=== PATIENT | female | born 2000 | race Two or more races ===

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

== ENCOUNTER → 2021-12-22 | Outpatient (REF) | payer OTHER ==
[2021-12-22 12:12] LABS: HEMATOCRIT 40.6 % (36.0-47.0); MEAN CORPUSCULAR HEMOGLOBIN 30.6 pg (27.0-33.0); MEAN CORPUSCULAR HGB CONC 34.5 g/dl (32.0-36.5); MEAN CORPUSCULAR VOLUME 88.8 fl (80.0-96.0); PLATELET COUNT, AUTOMATED 275 10^3/uL (150-450); RED BLOOD COUNT 4.57 10^6/uL (4.00-5.40); WHITE BLOOD COUNT 7.8 10^3/uL (4.0-10.0)
[2021-12-22 13:02] LABS: HCG, SERUM QUANTITATIVE 32616 MIU/ML
[2021-12-22 13:18] LABS: HEPATITIS C VIRUS ABY INDEX 0.1 INDEX (<0.8)
[2021-12-22 13:19] LABS: HIV 1&2 SCREEN CENTAUR NEGATIVE (NEGATIVE)
== END ==
LOC: M LAB REF 11:35
PROVIDERS: ATTEND Obstetrics & Gynecology
DX: Z32.01 Encounter for pregnancy test, result positive (principal); O36.80X0 Pregnancy with inconclusive fetal viability, not applicable or unspecified

== ENCOUNTER → 2022-01-19 | Outpatient (REF) | payer OTHER | LOC: M LAB REF 16:39 | PROVIDERS: ATTEND Obstetrics & Gynecology | DX: Z34.01 Encounter for supervision of normal first pregnancy, first trimester (principal) ==

== ENCOUNTER → 2022-03-31 | Outpatient (CLI) | payer OTHER | LOC: M LAB 10:02 | PROVIDERS: ATTEND Advanced Practice Midwife | DX: O99.212 Obesity complicating pregnancy, second trimester (principal); Z3A.00 Weeks of gestation of pregnancy not specified ==

== ENCOUNTER → 2022-05-11 | Outpatient (REF) | payer OTHER | LOC: M LAB REF 11:39 | PROVIDERS: ATTEND Obstetrics & Gynecology | DX: R30.0 Dysuria (principal) ==

== ENCOUNTER → 2022-05-13 | Outpatient (REF) | payer OTHER | LOC: M LAB REF 12:28 | PROVIDERS: ATTEND Obstetrics & Gynecology | DX: R30.0 Dysuria (principal) ==

== ENCOUNTER → 2022-05-24 | Outpatient (CLI) | payer OTHER ==
[2022-05-24 12:31] LABS: HEMATOCRIT 33.8 % (36.0-47.0); HEMOGLOBIN 11.1 g/dl (12.0-15.5); MEAN CORPUSCULAR HEMOGLOBIN 29.8 pg (27.0-33.0); MEAN CORPUSCULAR HGB CONC 32.8 g/dl (32.0-36.5); MEAN CORPUSCULAR VOLUME 90.6 fl (80.0-96.0); PLATELET COUNT, AUTOMATED 250 10^3/uL (150-450); RED BLOOD COUNT 3.73 10^6/uL (4.00-5.40); WHITE BLOOD COUNT 10.1 10^3/uL (4.0-10.0)
== END ==
LOC: M WUC 10:06
PROVIDERS: ATTEND Obstetrics & Gynecology
DX: Z34.02 Encounter for supervision of normal first pregnancy, second trimester (principal)
CPT/HCPCS: 36415; 82950; 85027; 86850; 86901; J2790

== ENCOUNTER 2022-06-22 17:26 | Emergency (ER) | payer OTHER ==
[~2022-06-22] VITALS: Ht 167.6 cm; Wt 152.9 kg
[2022-06-22 17:26] VITALS: BP 134/93
[2022-06-22] MEDS ORDERED: TUMS750C5 PO (17:59)
[2022-06-22] MEDS ORDERED: PRENTAB9 PO (17:59)
[2022-06-22] MEDS ORDERED: ACET325C5 PO (17:59)
[2022-06-22] MEDS ORDERED: ONDA4TAB6 PO (21:57)
== END 2022-06-22 19:00 | disposition left against medical advice (07) ==
LOC: M ED 17:26
DX: Z53.21 Procedure and treatment not carried out due to patient leaving prior to being seen by health care provider (principal)

== ENCOUNTER 2022-06-22 17:37 | Outpatient (CLI) | payer OTHER ==
[~2022-06-22] VITALS: Ht 167.6 cm; Wt 150.9 kg
[2022-06-22] MEDS ORDERED: PRENTAB9 PO (17:59)
[2022-06-22] MEDS ORDERED: ACET325C5 PO (17:59)
[2022-06-22] MEDS ORDERED: TUMS750C5 PO (17:59)
[2022-06-22] MEDS ORDERED: HOME MED LIST COMPLETE! XX SCH (18:00)
[2022-06-22 18:02] VITALS: BP 141/92
[2022-06-22] MEDS ORDERED: LACTATED RINGER'S 1000 ML IV STA (18:41)
[2022-06-22] MEDS ORDERED: LR 1,000 ML IV SCH (18:45)
[2022-06-22 18:48] LABS: HEMATOCRIT 31.5 % (36.0-47.0); HEMOGLOBIN 10.7 g/dl (12.0-15.5); MEAN CORPUSCULAR HEMOGLOBIN 29.9 pg (27.0-33.0); PLATELET COUNT, AUTOMATED 212 10^3/uL (150-450); RED BLOOD COUNT 3.58 10^6/uL (4.00-5.40); WHITE BLOOD COUNT 8.4 10^3/uL (4.0-10.0)
[2022-06-22 19:18] LABS: URIC ACID 4.8 MG/DL (3.1-7.8)
[2022-06-22 19:21] LABS: LDH LACTATE DEHYDROGENASE 146 U/L (120-246)
[2022-06-22 19:22] LABS: ALBUMIN 2.5 G/DL (3.2-5.2); ALKALINE PHOSPHATASE 87 U/L (46-116); ALT/SGPT 12 U/L (7.0-40); AST/SGOT 10 U/L (<34); BILIRUBIN,TOTAL 0.5 MG/DL (0.3-1.2); BLOOD UREA NITROGEN 7 MG/DL (9-23); CALCIUM LEVEL 8.4 MG/DL (8.5-10.1); CARBON DIOXIDE LEVEL 20 MMOL/L (20-31); CHLORIDE LEVEL 107 MMOL/L (98-107); CREATININE FOR GFR 0.56 MG/DL (0.55-1.30); GLUCOSE, FASTING 92 MG/DL (60-100); POTASSIUM SERUM 3.6 MMOL/L (3.5-5.1); SODIUM LEVEL 138 MMOL/L (136-145); TOTAL PROTEIN 5.8 G/DL (5.7-8.2)
[2022-06-22 20:31] LABS: TOTAL PROTEIN,RANDOM URINE 35.7 MG/DL (0.0-14.0)
[2022-06-22] MEDS ORDERED: ONDA4TAB6 PO (21:57)
[2022-06-22] MEDS ORDERED: ONDANSETRON 4MG TAB PO ONE (22:00)
== END 2022-06-22 22:09 | disposition home or self-care (01) ==
LOC: M LDO 17:37
PROVIDERS: ATTEND Obstetrics & Gynecology
DX: O26.893 Other specified pregnancy related conditions, third trimester (principal); R10.31 Right lower quadrant pain; O99.213 Obesity complicating pregnancy, third trimester; Z3A.32 32 weeks gestation of pregnancy
CPT/HCPCS: 59025; 80053; 82570; 83615; 84156; 84550; 85027; 87486; 87581; 87633; 87798; G0378; G0463

== ENCOUNTER → 2022-07-14 | Outpatient (REF) | payer OTHER ==
[~2022-07-14] MED LIST: ACET325C5 PO; ONDA4TAB6 PO; PRENTAB9 PO; TUMS750C5 PO
== END ==
LOC: M LAB REF 16:00
PROVIDERS: ATTEND Obstetrics & Gynecology
DX: Z34.03 Encounter for supervision of normal first pregnancy, third trimester (principal)

== ENCOUNTER 2022-07-19 12:31 | Outpatient (CLI) | payer OTHER ==
[~2022-07-19] VITALS: Ht 167.6 cm; Wt 153.5 kg
[2022-07-19 13:01] VITALS: BP 126/75
[2022-07-19] MEDS ORDERED: HOME MED LIST COMPLETE! XX SCH (13:10)
[2022-07-19] MEDS ORDERED: ACETAMINOPHEN 500 MG TAB PO ONE (13:25)
[2022-07-19 14:08] VITALS: BP 121/73
== END 2022-07-19 14:34 | disposition home or self-care (01) ==
LOC: M LDO 12:31
PROVIDERS: ATTEND Advanced Practice Midwife
DX: O26.893 Other specified pregnancy related conditions, third trimester (principal); R51.9 Headache, unspecified; R60.9 Edema, unspecified; Z3A.36 36 weeks gestation of pregnancy
CPT/HCPCS: 59025; G0378; G0463

== ENCOUNTER 2022-08-03 14:41 | Inpatient (IN) | payer OTHER ==
[2022-08-03] VITALS (9 sets, daily range): BP systolic 118–155; BP diastolic 63–90
[~2022-08-03] VITALS: Ht 167.6 cm; Wt 154.7 kg
[2022-08-03] MEDS ORDERED: HOME MED LIST COMPLETE! XX SCH (15:20)
[2022-08-03 16:41] LABS: HEMATOCRIT 33.6 % (36.0-47.0); HEMOGLOBIN 11.1 g/dl (12.0-15.5); MEAN CORPUSCULAR VOLUME 87.7 fl (80.0-96.0); PLATELET COUNT, AUTOMATED 251 10^3/uL (150-450); RED BLOOD COUNT 3.83 10^6/uL (4.00-5.40); WHITE BLOOD COUNT 10.6 10^3/uL (4.0-10.0)
[2022-08-03 16:51] LABS: LDH LACTATE DEHYDROGENASE 164 U/L (120-246)
[2022-08-03 17:00] LABS: TOTAL PROTEIN,RANDOM URINE 30.6 MG/DL (0.0-14.0)
[2022-08-03 17:14] LABS: ALT/SGPT 12 U/L (7.0-40); AST/SGOT 11 U/L (<34); BILIRUBIN,TOTAL 0.3 MG/DL (0.3-1.2); CREATININE FOR GFR 0.53 MG/DL (0.55-1.30)
[2022-08-03 17:44] LABS: CREATININE,RANDOM URINE 105.6 MG/DL
[2022-08-03] MEDS ORDERED: TRANEXAMIC ACID INJection 1,000 MG in NS 100 ML IV PRN (18:10)
[2022-08-03] MEDS ORDERED: OXYTOCIN DRIP 30 UNITS in IV 1 EA IV PRN (18:10)
[2022-08-03] MEDS ORDERED: CARBOPROST TROMETHAMINE 250 MCG/ML AMP IM PRN (18:10)
[2022-08-03] MEDS ORDERED: LR 1,000 ML IV SCH (18:10)
[2022-08-03] MEDS ORDERED: OXYTOCIN DRIP 30 UNITS in IV 1 EA IV SCH (18:10)
[2022-08-03] MEDS ORDERED: miSOPROStol 50MCG 1/2 TABLET PV SCH (20:20)
[2022-08-04] VITALS (16 sets, daily range): BP systolic 124–189; BP diastolic 58–120
[2022-08-04] MEDS ORDERED: miSOPROStol 50MCG 1/2 TABLET PO SCH (00:15)
[2022-08-04] MEDS ORDERED: OXYTOCIN DRIP 30 UNITS in IV 1 EA IV SCH ×5 (05:20→11:15)
[2022-08-04] MEDS ORDERED: PROMETHAZINE 25MG/ML 1ML VIAL IV ONE (05:50)
[2022-08-04] MEDS ORDERED: BUTORPHANOL 2 MG/ML 1ML VIAL IV ONE (05:50)
[2022-08-04] MEDS: PRENATAL VITAMINS CHEWABLE TABLET PO SCH (09:00)
[2022-08-04 09:41] LABS: HEMATOCRIT 34.1 % (36.0-47.0); HEMOGLOBIN 11.2 g/dl (12.0-15.5); MEAN CORPUSCULAR HEMOGLOBIN 29.2 pg (27.0-33.0); MEAN CORPUSCULAR HGB CONC 32.8 g/dl (32.0-36.5); MEAN CORPUSCULAR VOLUME 88.8 fl (80.0-96.0); PLATELET COUNT, AUTOMATED 232 10^3/uL (150-450); RED BLOOD COUNT 3.84 10^6/uL (4.00-5.40); WHITE BLOOD COUNT 13.4 10^3/uL (4.0-10.0)
[2022-08-04] MEDS ORDERED: EPIDURAL/PCA KEYS XX PRN (10:05)
[2022-08-04] MEDS ORDERED: FENTANYL/ROPIVACAINE/NACL BAG 100 ML EPIDURAL SCH (10:05)
[2022-08-04] MEDS ORDERED: LR 500 ML IV PRN (10:05)
[2022-08-04] MEDS ORDERED: NALOXONE INJ 0.4MG/1ML VIAL IV PRN (10:05)
[2022-08-04] MEDS ORDERED: diphenhydrAMINE 50MG/ML VIAL IV PRN (10:05)
[2022-08-04] MEDS ORDERED: ONDANSETRON 4MG 2ML VIAL IV PRN (10:05)
[2022-08-04] MEDS ORDERED: ePHEDrine SULFATE 25 MG/5 ML(5MG/ML) SYRINGE IVP PRN (10:05)
[2022-08-04] MEDS ORDERED: LIDOCAINE 1% MDV 20ML VIAL As Ordered ONE (10:38)
[2022-08-04] MEDS ORDERED: LIDOCAINE 1% MDV 20ML VIAL IM ONE (10:40)
[2022-08-04] MEDS ORDERED: ACETAMINOPHEN TAB 650MG DOSE (2X325MG) PO PRN (11:15)
[2022-08-04] MEDS ORDERED: DIBUCAINE 1% OINTMENT 30GM TOP PRN (11:15)
[2022-08-04] MEDS ORDERED: IBUPROFEN 600MG TAB PO PRN (11:15)
[2022-08-04] MEDS ORDERED: RHOGAM 300MCG (1500IU) INJ IM SCH (11:15)
[2022-08-04] MEDS ORDERED: DOCUSATE SODIUM 100MG CAPSULE PO PRN (11:15)
[2022-08-04] MEDS: IBUPROFEN 800 MG TAB PO PRN ×2 (11:56→18:46)
[2022-08-04] MEDS: ACETAMINOPHEN 500 MG TAB PO PRN (23:49)
[2022-08-05] MEDS: ACETAMINOPHEN 500 MG TAB PO PRN ×2 (05:21→16:31)
[2022-08-05 05:46] VITALS: BP 141/74
[2022-08-05] MEDS: PRENATAL VITAMINS CHEWABLE TABLET PO SCH (09:16)
[2022-08-05] MEDS: IBUPROFEN 800 MG TAB PO PRN ×2 (09:16→21:06)
[2022-08-05 10:00] VITALS: BP 131/65
[2022-08-05 14:00] VITALS: BP 121/64
[2022-08-05 18:00] VITALS: BP 136/73
[2022-08-05 22:00] VITALS: BP 138/87
[2022-08-06] MEDS: ACETAMINOPHEN 500 MG TAB PO PRN ×2 (00:40→10:55)
[2022-08-06 02:00] VITALS: BP 132/74
[2022-08-06 06:00] VITALS: BP 128/66
[2022-08-06] MEDS: IBUPROFEN 800 MG TAB PO PRN (06:34)
[2022-08-06] MEDS: PRENATAL VITAMINS CHEWABLE TABLET PO SCH (08:31)
[2022-08-06] MEDS ORDERED: MEASLES,MUMPS,RUBELLA VACCINE INJ (MMR-II) SC.IMMUN ONE (09:00)
[2022-08-06 10:00] VITALS: BP 128/75
== END 2022-08-06 15:05 | disposition home or self-care (01) | DRG 807 ==
LOC: M LDO 14:41 → M LDI 18:02 → M OBS 08-04 12:43
PROVIDERS: ADMIT Obstetrics & Gynecology; ATTEND Obstetrics & Gynecology
PROC: 3E033VJ Introduction of Other Hormone into Peripheral Vein, Percutaneous Approach (ICD-10-PCS; 2022-08-03)
PROC: 3E0DXGC Introduction of Other Therapeutic Substance into Mouth and Pharynx, External Approach (ICD-10-PCS; 2022-08-03)
PROC: 10E0XZZ Delivery of Products of Conception, External Approach (ICD-10-PCS; principal; 2022-08-04)
PROC: 0KQM0ZZ Repair Perineum Muscle, Open Approach (ICD-10-PCS; 2022-08-04)
PROC: 0HQ9XZZ Repair Perineum Skin, External Approach (ICD-10-PCS; 2022-08-04)
DX: O13.4 Gestational [pregnancy-induced] hypertension without significant proteinuria, complicating childbirth (principal); Z37.0 Single live birth; Z3A.38 38 weeks gestation of pregnancy; O70.0 First degree perineal laceration during delivery; O70.1 Second degree perineal laceration during delivery

== ENCOUNTER 2023-11-03 17:27 | Emergency (ER) | payer OTHER, SELFPAY ==
[~2023-11-03] VITALS: Ht 167.6 cm; Wt 144.5 kg
[2023-11-03] MEDS ORDERED: STOO100C30 PO (17:34)
[2023-11-03 18:39] LABS: BASO % 0.4 % (0.0-1.0); EOS # 0.1 10^3/uL (0.0-0.5); HEMOGLOBIN 13.6 g/dl (12.0-15.5); LYMPH # 2.4 10^3/uL (1.5-5.0); LYMPH % 29.8 % (24.0-44.0); MEAN CORPUSCULAR HGB CONC 33.2 g/dl (32.0-36.5); MEAN CORPUSCULAR VOLUME 90.3 fl (80.0-96.0); MONO # 0.6 10^3/uL (0.0-0.8); NEUTROPHILS # 4.8 10^3/uL (1.5-8.5); NEUTROPHILS % 60.7 % (36.0-66.0); PLATELET COUNT, AUTOMATED 256 10^3/uL (150-450); RED BLOOD COUNT 4.54 10^6/uL (4.00-5.40)
[2023-11-03 18:54] LABS: LIPASE 23 U/L (12-53)
[2023-11-03 18:56] LABS: ALBUMIN 3.3 G/DL (3.2-5.2); ALKALINE PHOSPHATASE 76 U/L (46-116); ALT/SGPT 26 U/L (7.0-40); AST/SGOT 9 U/L (<34); BILIRUBIN,DIRECT 0.1 MG/DL (<0.4); BILIRUBIN,TOTAL 0.3 MG/DL (0.3-1.2); BLOOD UREA NITROGEN 14 MG/DL (9-23); CARBON DIOXIDE LEVEL 27 MMOL/L (20-31); CHLORIDE LEVEL 111 MMOL/L (98-107); CREATININE FOR GFR 0.75 MG/DL (0.55-1.30); GLOMERULAR FILTRATION RATE > 60.0 (>60); GLUCOSE, FASTING 103 MG/DL (60-100); POTASSIUM SERUM 4.5 MMOL/L (3.5-5.1); SODIUM LEVEL 143 MMOL/L (136-145); TOTAL PROTEIN 6.6 G/DL (5.7-8.2)
[2023-11-03 19:02] LABS: HCG, SERUM QUALITATIVE NEGATIVE (NEGATIVE)
[2023-11-03 23:00] VITALS: BP 119/75; TEMP 97.8; O2SAT 99
== END 2023-11-03 23:12 | disposition home or self-care (01) ==
LOC: M ED 17:27
DX: K80.66 Calculus of gallbladder and bile duct with acute and chronic cholecystitis without obstruction (principal); K21.9 Gastro-esophageal reflux disease without esophagitis; F17.290 Nicotine dependence, other tobacco product, uncomplicated; F12.10 Cannabis abuse, uncomplicated; Z79.1 Long term (current) use of non-steroidal anti-inflammatories (NSAID); Z79.899 Other long term (current) drug therapy

== ENCOUNTER → 2023-11-24 | Outpatient (CLI) | payer BC ==
[~2023-11-24] MED LIST changes: +STOO100C30 PO
== END ==
LOC: M RAD 10:28
PROVIDERS: ATTEND Surgery
DX: Z01.810 Encounter for preprocedural cardiovascular examination (principal); K80.20 Calculus of gallbladder without cholecystitis without obstruction

== ENCOUNTER 2023-11-28 12:20 | Day surgery (SDC) | payer BC ==
[~2023-11-28] VITALS: Ht 167.6 cm; Wt 139.6 kg
[~2023-11-28 12:20] MED LIST changes: +INDOCYANINE GREEN 25MG VIAL (IC-GREEN) IV ONE
[2023-11-28] MEDS: CelecoXIB 400 MG CAP PO ONE (13:00)
[2023-11-28] MEDS ORDERED: INDOCYANINE GREEN 25MG VIAL (IC-GREEN) As Ordered ONE (16:37)
[2023-11-28] MEDS ORDERED: SUGAMMADEX SODIUM 500 MG/5 ML VIAL (BRIDION) As Ordered ONE (16:37)
[2023-11-28] MEDS ORDERED: ONDANSETRON 4MG 2ML VIAL As Ordered ONE (16:37)
[2023-11-28] MEDS ORDERED: fentaNYL 250 MCG/5 ML INJECTION As Ordered ONE (16:37)
[2023-11-28] MEDS ORDERED: MIDAZOLAM INJ 2MG/2ML VIAL As Ordered ONE (16:37)
[2023-11-28] MEDS ORDERED: KETOROLAC 60MG 2ML VIAL As Ordered ONE (16:37)
[2023-11-28] MEDS ORDERED: LIDOCAINE 2% 100MG/5ML SDV (FOR ANES.) As Ordered ONE (16:38)
[2023-11-28] MEDS ORDERED: ROCURONIUM BROMIDE 50MG/5ML VIAL As Ordered ONE (16:38)
[2023-11-28] MEDS ORDERED: METOCLOPRAMIDE INJ 10MG/2ML VIAL As Ordered ONE (16:38)
[2023-11-28] MEDS ORDERED: ACETAMINOPHEN 1000MG 100ML IV BAG As Ordered ONE (16:38)
[2023-11-28] MEDS ORDERED: propofoL 200 MG/20 ML VIAL As Ordered ONE (16:38)
[2023-11-28] MEDS: ceFAZolin SOD 2 GM in IV 1 EA IV ONE (17:55)
[2023-11-28] MEDS: ceFAZolin SOD 1 GM in D5W MINI-BAG PLUS 50 ML IV ONE (17:55)
[2023-11-28] MEDS ORDERED: HYDROmorphone HCL 2MG/ML 1ML VIAL As Ordered ONE (19:05)
[2023-11-28] MEDS: LIDOCAINE 1% SDV 30ML VIAL As Ordered ONE (19:40)
[2023-11-28] MEDS ORDERED: ONDANSETRON 4MG 2ML VIAL IV PRN (19:45)
[2023-11-28] MEDS ORDERED: fentaNYL 100 MCG/2 ML INJECTION IV PRN (19:45)
[2023-11-28] MEDS ORDERED: HYDROMORPHONE HCL 0.5 MG/ 0.5 ML SYRINGE IV PRN (19:45)
[2023-11-28] MEDS: oxyCODONE 5MG TAB PO PRN (20:14)
[2023-11-28] MEDS: LR 1,000 ML IV SCH (20:14)
[2023-11-28 21:13] VITALS: BP 116/61; TEMP 97; O2SAT 95
== END 2023-11-28 21:17 | disposition home or self-care (01) ==
LOC: M SDC 12:20
PROVIDERS: ATTEND Surgery
DX: K80.20 Calculus of gallbladder without cholecystitis without obstruction (principal); F17.200 Nicotine dependence, unspecified, uncomplicated; F12.10 Cannabis abuse, uncomplicated; E66.01 Morbid (severe) obesity due to excess calories
CPT/HCPCS: 47563; 81025; 88304; J0131; J0665; J0690; J1100; J1170; J1885; J2250; J2405; J2765; J3010; Q9968; S2900

== ENCOUNTER → 2024-02-01 | Outpatient (CLI) | payer BC ==
[~2024-02-01] MED LIST changes: -INDOCYANINE GREEN 25MG VIAL (IC-GREEN) IV ONE; +ONDA-282 PO; -ONDA4TAB6 PO
[2024-02-01 10:55] LABS: BASO # 0.1 10^3/uL (0.0-0.2); BASO % 0.8 % (0.0-1.0); EOS # 0.1 10^3/uL (0.0-0.5); EOS % 1.7 % (0.0-3.0); HEMOGLOBIN 13.6 g/dl (12.0-15.5); LYMPH # 2.8 10^3/uL (1.5-5.0); LYMPH % 46.1 % (24.0-44.0); MEAN CORPUSCULAR HEMOGLOBIN 30.2 pg (27.0-33.0); MEAN CORPUSCULAR HGB CONC 33.2 g/dl (32.0-36.5); MEAN CORPUSCULAR VOLUME 91.1 fl (80.0-96.0); MONO # 0.6 10^3/uL (0.0-0.8); MONO % 9.4 % (2.0-8.0); NEUTROPHILS # 2.5 10^3/uL (1.5-8.5); NEUTROPHILS % 41.8 % (36.0-66.0); PLATELET COUNT, AUTOMATED 227 10^3/uL (150-450)
[2024-02-01 11:06] LABS: HEMOGLOBIN A1c 4.8 % (4.0-6.0)
[2024-02-01 11:20] LABS: ALBUMIN 3.7 G/DL (3.2-5.2); ALKALINE PHOSPHATASE 79 U/L (46-116); ALT/SGPT 30 U/L (7.0-40); AST/SGOT 8 U/L (<34); BILIRUBIN,TOTAL 0.3 MG/DL (0.3-1.2); BLOOD UREA NITROGEN 12 MG/DL (9-23); CALCIUM LEVEL 9.4 MG/DL (8.5-10.1); CARBON DIOXIDE LEVEL 27 MMOL/L (20-31); CHLORIDE LEVEL 110 MMOL/L (98-107); GLOMERULAR FILTRATION RATE > 60.0 (>60); GLUCOSE, FASTING 87 MG/DL (60-100); POTASSIUM SERUM 4.7 MMOL/L (3.5-5.1); SODIUM LEVEL 142 MMOL/L (136-145); TOTAL PROTEIN 6.5 G/DL (5.7-8.2)
[2024-02-01 11:22] LABS: THYROID STIMULATING HORMONE 1.778 uIU/ML (0.55-4.78)
== END ==
LOC: M PLALAB 08:23
PROVIDERS: ATTEND Nurse Practitioner Family
DX: N92.0 Excessive and frequent menstruation with regular cycle (principal); N73.9 Female pelvic inflammatory disease, unspecified

== ENCOUNTER → 2024-03-09 | Outpatient (CLI) | payer BC | LOC: M WHC 13:20 | PROVIDERS: ATTEND Nurse Practitioner Family | DX: N92.0 Excessive and frequent menstruation with regular cycle (principal); N83.201 Unspecified ovarian cyst, right side ==

== ENCOUNTER → 2024-04-04 | Outpatient (CLI) | payer BC | LOC: M PLAIMG 12:14 | PROVIDERS: ATTEND Nurse Practitioner Family | DX: Z12.4 Encounter for screening for malignant neoplasm of cervix (principal); R10.9 Unspecified abdominal pain | CPT/HCPCS: 74018; G0123 ==

== ENCOUNTER → 2024-06-28 | Outpatient (CLI) | payer BC | LOC: M RAD 07:24 | PROVIDERS: ATTEND Nurse Practitioner Family | DX: N83.201 Unspecified ovarian cyst, right side (principal) ==

== ENCOUNTER → 2024-07-06 | Outpatient (REF) | payer BC | LOC: M LAB REF 16:18 | PROVIDERS: ATTEND Physician Assistant | DX: R10.9 Unspecified abdominal pain (principal) ==

== ENCOUNTER → 2025-04-08 | Outpatient (CLI) | payer OTHER ==
[~2025-04-08] MED LIST changes: +LEXA1TAB PO
[2025-04-08 14:15] LABS: URINE PREG TEST NEGATIVE (NEGATIVE)
[2025-04-08 14:46] LABS: HCG, SERUM QUALITATIVE NEGATIVE (NEGATIVE)
== END ==
LOC: M PLALAB 12:01
PROVIDERS: ATTEND Nurse Practitioner Family
DX: Z32.01 Encounter for pregnancy test, result positive (principal)

== ENCOUNTER → 2025-05-09 | Outpatient (CLI) | payer OTHER ==
[2025-05-09 14:42] LABS: ALT/SGPT 21 U/L (7.0-40); AST/SGOT 14 U/L (<34); CALCIUM LEVEL 8.7 MG/DL (8.5-10.1); CARBON DIOXIDE LEVEL 25 MMOL/L (20-31); CHLORIDE LEVEL 109 MMOL/L (98-107); CHOLESTEROL LEVEL 151 MG/DL (<200); CHOLESTEROL RISK RATIO 2.32 (<5); CREATININE FOR GFR 0.72 MG/DL (0.55-1.30); GLOMERULAR FILTRATION RATE > 90.0 (>60); LDL CHOLESTEROL 76.5 MG/DL (<100); NON-HDL-C 86.1 MG/DL; POTASSIUM SERUM 4.2 MMOL/L (3.5-5.1); SODIUM LEVEL 142 MMOL/L (136-145); TOTAL 25(OH) VITAMIN D 22.4 NG/ML (20.0-100.0); TRIGLYCERIDES LEVEL 48 MG/DL (<150)
[2025-05-09 14:55] LABS: ESTIMATED AVERAGE GLUCOSE 94.0 MG/DL (60-110)
== END ==
LOC: M WUC 08:07
PROVIDERS: ATTEND Nurse Practitioner Family
DX: E66.813 Obesity, class 3 (principal); Z68.41 Body mass index [BMI] 40.0-44.9, adult

== ENCOUNTER → 2025-06-20 | Outpatient (CLI) | payer OTHER | LOC: M SLEEP HO 11:23 | PROVIDERS: ATTEND Nurse Practitioner Family | DX: R06.83 Snoring (principal) ==